=== PATIENT | female | born 1985 | race Caucasian/White ===

== ENCOUNTER 2016-05-28 10:26 | Inpatient (IN) | payer OTHER ==
[2016-05-28] MEDS ORDERED: OXYTOCIN 10 UNITS/ML VIAL ONE (10:54)
[2016-05-28] MEDS ORDERED: LIDOCAINE Viscous 2% 15 ML UDCUP ONE (10:54)
[2016-05-28] MEDS ORDERED: LIDOCAINE 1% (PRES FREE) 30 ML VIAL ONE (10:54)
[2016-05-28] MEDS ORDERED: PUMP TUBING ONE (10:54)
[2016-05-28] MEDS ORDERED: OXYTOCIN IN LR 0 ML IV ONE (10:54)
[2016-05-28] MEDS ORDERED: MINERAL OIL 25 ML BOT ONE (10:54)
[2016-05-28] MEDS ORDERED: LIDOCAINE 1% (PRES FREE) 30 ML VIAL SUB-Q ONE (11:14)
[2016-05-28] MEDS ORDERED: IBUPROFEN 800 MG TABLET ONE (11:53)
[2016-05-28] MEDS ORDERED: HYDROCODONE/ACETAMINOPHEN 5/325MG TABLET ONE (11:54)
[2016-05-28] MEDS ORDERED: IV START KIT ONE (12:12)
[2016-05-28] MEDS ORDERED: LACTATED RINGERS 1,000 ML IV SCH (12:15)
[2016-05-28] MEDS ORDERED: DOCUSATE SODIUM 100 MG CAPSULE PO PRN ×2 (12:24→15:03)
[2016-05-28] MEDS ORDERED: BENZOCAINE/MENTHOL 60 APPLIC/BOT TP PRN ×2 (12:24→15:03)
[2016-05-28] MEDS ORDERED: IBUPROFEN 800 MG TABLET PO PRN (12:24)
[2016-05-28] MEDS ORDERED: MAGNESIUM HYDROXIDE 30 ML UDCUP PO PRN (12:24)
[2016-05-28] MEDS ORDERED: HYDROCODONE/ACETAMINOPHEN 5/325MG TABLET PO ONE (12:24)
[2016-05-28] MEDS ORDERED: LANOLIN 50 APPLIC/7G TUBE TP PRN ×2 (12:24→15:03)
[2016-05-28 12:30] LABS: HEMOGLOBIN 12.3 gm/l (12.0-16.0); MEAN CELL VOLUME 93.2 fl (81.0-99.0); MEAN CORPUSCULAR HGB CONC 33.2 g/dl (33.0-37.0); RED CELL DISTRIBUTION WIDTH 13.9 % (11.5-14.5)
[2016-05-28] MEDS ORDERED: HYDROMORPHONE HCL 1 MG/ML SYRINGE IV ONE (12:32)
[2016-05-28] MEDS ORDERED: HYDROMORPHONE HCL 1 MG/ML SYRINGE ONE (12:33)
--- NOTE | 2016-05-28 12:36 | PDOC36 ---
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 Had 1st degree labial laceration on right, and then perineal 2nd degree laceration. However, subsequently 1hr after, pt was having exquisite pain and rectal pressure. Pt was noted to have right vaginal hematoma. Upon exam, pt appeared very uncomfortable. Vaginal repairs are intact, no bleeding noted. There is a 4-5cm right lateral vaginal bulge which is tender. Plan: to (main) OR for I&D of vaginal hematoma and vaginal repair. Procedure discussed, risks of bleeding, infection, injury to organs discussed possible transfusion discussed may have dilaudid
--- NOTE | 2016-05-28 12:41 | PDOC36 ---
Provider Note Subject: Vaginal hematoma Note: Called to pt's room to evaluate report of patient's pain severely increasing over the past 1/2 hour, mostly in rectal area. Has had 1 dose of ibuprofen 800 mg and NORCO 1 tab, but no effect. On evaluation, fundus is firm, lochia is moderate and external genetalia have some edema, but lacerations appear well- approximated. On vaginal exam a tender mass ~ 4-5 cm is noted in lower right vag wall, not apparently associated with the perineal laceration. Pt is writhing in pain. A: vaginal hematoma , very symptomatic P: Dr. Gama called to evaluate patient; CBC, IV ordered stat Addendum: On evaluation, Dr. Gama agrees to diagnosis of vag hematoma and will schedule the excision JOHNNY. Advises Dilaudid IV for the pain while waiting. Orders placed.
[2016-05-28] MEDS ORDERED: EPIDURAL PUMP SET ONE (12:53)
[2016-05-28] MEDS ORDERED: FENTANYL/ROPIVACAINE EPIDURAL 0 ML EP ONE (12:53)
[2016-05-28] MEDS ORDERED: SPINAL PROCEDURAL TRAY 1 EACH ONE (13:19)
[2016-05-28] MEDS ORDERED: FENTANYL 100 MCG/2 ML VIAL ONE (13:20)
[2016-05-28] MEDS ORDERED: MIDAZOLAM HCL 1 MG/ML 2ML VIAL ONE (13:20)
[2016-05-28] MEDS ORDERED: CEFAZOLIN SODIUM 2 GRAM DUPLEX 50 ML IV ONE (13:28)
[2016-05-28] MEDS ORDERED: PHENYLEPHRINE 10 MG/1 ML (1%) VIAL ONE (13:41)
[2016-05-28] MEDS ORDERED: ONDANSETRON 4 MG/2ML 2 ML VIAL ONE (14:00)
[2016-05-28] MEDS ORDERED: LIDOCAINE 2% (PRES FREE) 5 ML VIAL ONE (14:12)
[2016-05-28] MEDS ORDERED: EPHEDRINE SULFATE UD SYR 25 MG 25 MG/5 ML SYRINGE IV ONE (14:49)
[2016-05-28] MEDS ORDERED: FERROUS SULFATE (65 Fe) 325 MG TABLET PO SCH (15:00)
[2016-05-28] MEDS ORDERED: SENNOSIDES 8.6 MG TABLET PO PRN (15:03)
[2016-05-28] MEDS ORDERED: LACTATED RINGERS 1,000 ML IV PRN (15:03)
[2016-05-28] MEDS ORDERED: HYDROCODONE/ACETAMINOPHEN 5/325MG TABLET PO PRN (15:03)
--- NOTE | 2016-05-28 15:28 | PCMDEL ---
Delivery Note - Labor 1st stage (hr/min):: 4hr 57 min 2nd stage (hr/min):: 6min 3rd stage (hr/min):: 5min Total (hr/min):: 5hr 8min Pushed (hr/min):: 6 min - Delivery Delivery (Date): 05/28/16 Delivery (Time): 11:03 Infant Gender: Female Weight: 6 lb 4 oz Length: 1 ft 6.5 in Presentation: Cephalic Position: OA Umbilical Cord: 3 Vessel Delayed Cord Clamping:: 2-3 min 1 Minute Total: 9 5 Minute Total: 9 Placenta:: Torres intact EBL:: QBL 450 Perineum:: 1st degree labial/PU; 2nd degree perineal Suture:: 30 vicryl Anesthesia/Meds:: 1%lidocaine for repair Length ROM:: 2 min Comments:: Well-controlled delivery vigorous female - to maternal abdomen. Cord clamped ~3 minutes after delivery. Spont placenta, lac repaired under local. Excellent bonding - plans to breastfeed - remains [id number] in room.
--- NOTE | 2016-05-28 15:33 | PCMAN ---
OB Admission Note - History : 1 Term: 0 : 0 Abortions (S&E): 0 Livin EDC:: 06/01/16 Gestational Age (weeks): 39 Days (#/7): 3 Admit Cervical Dilation:: 9cm Admit Cervical Effacement (%):: 100 Admit Station:: -1 Admit Presentaton:: vtx Membrane Status: Intact Labor Onset (Date): 05/28/16 Labor Onset (Time): 06:00 Contractions: Yes Contraction Frequency:: q 2-3 Heart Rate:: 124 (Brief strip as patient wanting to push) Status:: Cat I Summary of Course:: Uncomplicated course x 8 visits from 25 weeks (late to care); dates by 10 week U /S Hx MJ use with UDS +, but denied use after 34 weeks Anemia of 9.8 hgb, taking Fe BID - Labs Blood Type: A (+) positive Hct/Hgb:: 9.8 Rubella Status: Immune GBS Status: Negative Other Labs:: UDS + for MJ - Review of Systems Painful with contractions, +FM, no ROM, + bloody show - Physical Exam General: Afebrile Psych/Mental Status: Mood/Affect Appropriate Neurological: Grossly Intact Lungs: Clear to Auscultation Bilaterally - Problems (1) Encounter for full-term uncomplicated delivery Status: Acute Code: O80 - Additional Comments Anticipate rapid progress to
--- NOTE | 2016-05-28 16:02 | PDOC36 ---
Provider Note Subject: note Note: Patient feeling much better, spinal is wearing off. After noting in records, patient reports she is also taking zoloft 50 mg in AM and 100 mg at night with good relief of depressive symptoms. Desires to continue - order written to start tonight as precribed prenatally.
--- NOTE | 2016-05-28 16:08 | OP ---
ANUEL ORONA [id number] DATE OF OPERATION: May 28, 2016 PREOPERATIVE DIAGNOSIS: 1. Status post vaginal delivery. 2. Vaginal hematoma. POSTOPERATIVE DIAGNOSIS: 1. Status post vaginal delivery. 2. Vaginal hematoma. OPERATION PERFORMED: INCISION AND DRAINAGE OF VAGINAL HEMATOMA AND VAGINAL REPAIR. SURGEON: Asaf Gama M.D. PROGRAM MANUFACTURING LEADER: Chiara Rodriguez C.N.M. ANESTHESIA: Spinal. ESTIMATED BLOOD LOSS: 300 mL. COMPLICATIONS: None. OPERATIVE FINDINGS: Include an 8 cm right lateral vaginal hematoma. DETAILS OF PROCEDURE: The patient was taken to the operating room and placed under spinal anesthesia. Patient was then placed in lithotomy and prepped and draped in a sterile fashion. A Melvin catheter was placed. Miranda retractors were then placed and the hematoma was examined and found to extend superiorly 8 cm involving the right lateral paravaginal space. A 6 cm incision was made over the hematoma and paravaginal space was then suctioned and evacuated of all blood clots. There was no distinct vessel that was noted. At this point the potential space was then closed with #0 Vicryl in interrupted fashion times two and then the vaginal mucosa was then closed with #0 Vicryl in interrupted fashion to close the entire space. Further areas of hemostasis were created with #0 Vicryl. The second degree laceration was also reinforced with #0 Vicryl suture. Subsequently 10 mL of 2% Lidocaine was injected locally at the vaginal incision and a large laparotomy sponge was used for packing. Estimated blood loss was 300 mL. All sponge and instrument counts were correct at this point as well as needle counts. Patient was then recovered from anesthesia and taken to the recovery room in stable condition.
[2016-05-28] MEDS: IBUPROFEN 800 MG TABLET PO PRN (18:04)
[2016-05-28] MEDS ORDERED: SERTRALINE HCL 50 MG TABLET PO ONE (20:00)
[2016-05-28] MEDS: FERROUS SULFATE (65 Fe) 325 MG TABLET PO SCH (20:42)
[2016-05-28] MEDS: SERTRALINE HCL 50 MG TABLET PO SCH (20:42)
[2016-05-28] MEDS: OXYCODONE/ACETAMINOPHEN 5/325 MG TABLET PO PRN (22:01)
[2016-05-29] MEDS: IBUPROFEN 800 MG TABLET PO PRN ×4 (01:00→21:23)
[2016-05-29] MEDS: OXYCODONE/ACETAMINOPHEN 5/325 MG TABLET PO PRN ×4 (02:49→21:22)
[2016-05-29 06:37] LABS: HEMATOCRIT 20.8 % (37.0-47.0); HEMOGLOBIN 6.8 gm/l (12.0-16.0)
--- NOTE | 2016-05-29 07:25 | PDOC44 ---
- Subjective Day: 1 Reports Pain Tolerable, Reports Lochia Light - Objective Temp Pulse Resp BP Pulse Ox 98.3 F 91 16 123/64 05/29/16 02:35 05/29/16 02:35 05/29/16 02:35 05/29/16 02:35 Lab Results 05/29/16 05/28/16 06:10 12:20 WBC 22.8 H RBC 3.97 L Hgb 6.8 L D 12.3 Hct 20.8 L 37.0 Plt Count 233 Current Medications Generic Name Dose Route Start Last Admin Trade Name Freq PRN Reason Stop Dose Admin Acetaminophen/Hydrocodone Bitart 1 - 2 tab 05/28/16 15:03 [place] 5/325 PO Q4H PRN Pain (Moderate) Benzocaine/Menthol 1 applic 05/28/16 15:03 Dermoplast TP PRN PRN Patient Comfort Docusate Sodium 100 mg 05/28/16 15:03 Colace PO DAILY PRN Comfort Emollient Ointment 1 applic 05/28/16 15:03 [id number] TP PRN PRN sore nipples Ferrous Sulfate 325 mg 05/28/16 21:00 05/28/16 20:42 Ferrous Sulfate PO 325 mg TID TOYIN Administration Lactated Ringer's 1,000 mls @ 100 mls/hr 05/28/16 15:03 Lactated Ringers IV .Q10H PRN Titrate per clinical situation Ibuprofen 800 mg 05/28/16 15:03 05/29/16 01:00 Motrin PO 800 mg Q6H PRN Administration Pain (Mild) Oxycodone/Acetaminophen 1 - 2 tab 05/28/16 16:00 05/29/16 02:49 Percocet 5/325 PO 1 tab Q6H PRN Administration Pain Senna 17.2 mg 05/28/16 15:03 Senokot PO BEDTIME PRN Comfort Sertraline HCl 100 mg 05/28/16 21:00 05/28/16 20:42 Zoloft PO 100 mg BEDTIME TOYIN Administration Sertraline HCl 50 mg 05/29/16 09:00 Zoloft PO QAM TOYIN Sodium Chloride 10 ml 05/28/16 17:00 05/29/16 07:19 Normal Saline 10ml Flush IV Not Given Q8HR TOYIN Sodium Chloride 10 ml 05/28/16 15:03 05/28/16 22:01 Normal Saline 10ml Flush IV 10 ml PRN PRN Administration IV Flush - Physical Exam Fundus: Firm, Below Umbilicus Genitourinary: Indwelling Urinary Cath, Other (vaginal packing removed) Disposition: Stable (vaginal packing removed; may remove gallardo today. Pt states her pain is much better. Lochia appears normal. Hgb=6.8 today. If asymptomatic will not need transfusion.)
[2016-05-29] MEDS: FERROUS SULFATE (65 Fe) 325 MG TABLET PO SCH ×2 (08:33→16:43)
[2016-05-29] MEDS ORDERED: SERTRALINE HCL 50 MG TABLET PO SCH ×3 (09:00→20:00)
[2016-05-29] MEDS ORDERED: IV START KIT ONE ×2 (10:01→22:09)
--- NOTE | 2016-05-29 12:10 | PDOC44 ---
- Subjective Day: 1 Gallardo and vaginal packing were removed today. She has been up to sit in the rocking chair without incident and plans to get up soon to ambulate to the bathroom with RN assistance. Reports pain is well-controlled on current meds. Mood stable on Zoloft. She denies dizziness, palpitations, fainting, weakness, shortness of breath. She is , but reports some difficulty with baby 's latch and fussiness. She's been seen by IBCLC this morning. She is hand expressing and feeding back to baby via syringe. She, Luke and baby will be moving back in with her aunt for a few weeks, and then into an apartment. She is amenable to an IV iron transfusion. Reports Flatus, Reports Pain Tolerable, Reports , Reports Lochia Moderate, Reports Tolerating Regular Diet - Objective Temp Pulse Resp BP Pulse Ox 97.3 F 93 16 120/90 05/29/16 08:16 05/29/16 08:16 05/29/16 08:16 05/29/16 08:16 Lab Results 05/29/16 05/28/16 06:10 12:20 WBC 22.8 H RBC 3.97 L Hgb 6.8 L D 12.3 Hct 20.8 L 37.0 Plt Count 233 Current Medications Generic Name Dose Route Start Last Admin Trade Name Freq PRN Reason Stop Dose Admin Acetaminophen/Hydrocodone Bitart 1 - 2 tab 05/28/16 15:03 [place] 5/325 PO Q4H PRN Pain (Moderate) Benzocaine/Menthol 1 applic 05/28/16 15:03 Dermoplast TP PRN PRN Patient Comfort Docusate Sodium 100 mg 05/28/16 15:03 05/29/16 10:03 Colace PO 100 mg DAILY PRN Administration Comfort Emollient Ointment 1 applic 05/28/16 15:03 [id number] TP PRN PRN sore nipples Ferrous Sulfate 325 mg 05/28/16 21:00 05/29/16 08:33 Ferrous Sulfate PO 325 mg TID TOYIN Administration Lactated Ringer's 1,000 mls @ 100 mls/hr 05/28/16 15:03 Lactated Ringers IV .Q10H PRN Titrate per clinical situation Ibuprofen 800 mg 05/28/16 15:03 05/29/16 08:34 Motrin PO 800 mg Q6H PRN Administration Pain (Mild) Oxycodone/Acetaminophen 1 - 2 tab 05/28/16 16:00 05/29/16 08:35 Percocet 5/325 PO 2 tab Q6H PRN Administration Pain Senna 17.2 mg 05/28/16 15:03 Senokot PO BEDTIME PRN Comfort Sertraline HCl 100 mg 05/28/16 21:00 05/28/16 20:42 Zoloft PO 100 mg BEDTIME TOYIN Administration Sertraline HCl 50 mg 05/29/16 09:00 05/29/16 08:34 Zoloft PO 50 mg QAM TOYIN Administration Sodium Chloride 10 ml 05/28/16 17:00 05/29/16 08:33 Normal Saline 10ml Flush IV 10 ml Q8HR TOYIN Administration Sodium Chloride 10 ml 05/28/16 15:03 05/28/16 22:01 Normal Saline 10ml Flush IV 10 ml PRN PRN Administration IV Flush - Physical Exam General: Afebrile Psych/Mental Status: Mood/Affect Appropriate, Judgment/Insight Intact, Bonding Well Lungs: Clear to Auscultation Bilaterally Cardiovascular: Regular Rate and Rhythm Breast: Soft, Skin intact, Erythema (Mild erythema on both nipples), Nipples Intact Fundus: Firm, Midline (1FB below), Below Umbilicus Genitourinary: Other (Deferred d/t Dr. Gama's exam this morning) Lochia: Moderate Skin: Other (Mild pallor) - Problems:Assessment/Plan (1) care following vaginal delivery Status: AcuteAssessment/Plan: A: Day 1 s/p S/p I&D for vaginal hematoma-vaginal packing and gallardo removed this morning by Dr. Gama. Lochia stable -working on latch Severe anemia P: : encourage relatching when baby is latched shallow, continue with hand expression, IBCLC & RN support with feedings, lanolin Pain: keep pain meds as ordered Severe anemia: see separate note Housing: has support and a plan in place to move within the next few weeks Depression: keep Zoloft at current dosage Anticipate d/c home tomorrow (2) Anemia due to blood loss, acute Status: AcuteAssessment/Plan: A: Severe anemia Asymptomatic, except for pallor Vital signs stable Hasn't been up to ambulate to BR yet Lochia stable P: Discussed options for treating anemia. Blood transfusion not indicated at this point because she is asymptomatic. Discussed option of one-time IV iron transfusion today and home PO TID iron. Pt agrees to IV iron transfusion. Orders placed. Pt to try ambulating with RN assistance today, alternating with rest. Encouraged pt to take extra rest going home, especially when packing and moving into new apartment. Encouraged to ask for help from family and friends. Also encouraged to stay well-hydrated. Discussed potential impact of severe anemia on . Reviewed s/s anemia and asked pt to notify RN if she develops s/s. Disposition: Anticipate DC Home Tomorrow
[2016-05-29] MEDS ORDERED: DIPHENHYDRAMINE HCL 25 MG CAPSULE PO PRN (12:19)
[2016-05-29] MEDS ORDERED: IRON SUCROSE COMPLEX 200 MG in SODIUM CHLORIDE 0.9% 100 ML IV ONE (13:00)
[2016-05-29] MEDS ORDERED: PUMP TUBING ONE (14:47)
[2016-05-29 19:25] LABS: HEMATOCRIT 18.9 % (37.0-47.0); HEMOGLOBIN 6.3 gm/l (12.0-16.0)
[2016-05-29] MEDS ORDERED: SODIUM CHLORIDE 0.9% 500 ML IV PRN (20:53)
--- NOTE | 2016-05-29 20:55 | PDOC36 ---
Provider Note Subject: CNM called by RN at 1600. RN reporting pt c/o new-onset upper abdominal and uterine pain. Reports pt was tearful when RN did abdominal and fundal exam ( prior to pt being medicated). Last pain meds given at 1500-percoset & ibuprofen. S: Pt reports that pain medications helped, but she is still mildly painful. Reports ambulating to bathroom to void x2-1 moderate sized blood clot. Reports some mild dizziness when ambulating. Denies shortness of breath, chest pain, palpitations, faintness. O: PE: mild tenderness on palpation in upper L & R quadrants; mild tenderness when gently palpating fundus-slight wincing, not tearful; lungs CTAB; heart RRR ; bruising on right inner apsect of thigh near inguinal fold and perineum (per RN exam) H/H: 6.8 & 20.8 A: Severe anemia-only symptom is mild dizziness while ambulating New-onset mild abdominal and fundal tenderness S/p 1 dose IV venofer VSS Lochia stable P: H/H ordered for 1730 tonight to rule out decreasing count/additional bleeding Colace changed to BID PRN d/t constipation from percoset and PO iron PO iron held until discharge Reviewed with pt that her pain is likely due to being sore from vigorous fundal checks, labor, and afterpains. Recommedned to observe for next 1-2hrs and if pain increases, pt is to notify RN and CNM will reevaluate pain management plan with pt. Pt agrees. Discussed that if blood count drops or if she develops additional symptoms, the recommendation will be a blood transfusion. Continue to monitor pt status closely.
[2016-05-29] MEDS ORDERED: ACETAMINOPHEN 325 MG TABLET PO ONE (21:06)
[2016-05-29] MEDS ORDERED: FUROSEMIDE 20 MG/2 ML VIAL IV ONE (21:06)
--- NOTE | 2016-05-29 21:14 | PDOC44 ---
- Subjective Day: 1 (Blood transfusion note) Reports Flatus, Reports Pain Tolerable, Reports , Reports Lochia Light, Reports Tolerating Regular Diet, Reports Other (Noting new onset dizziness.) - Objective Temp Pulse Resp BP Pulse Ox 98.1 F 84 18 103/62 05/29/16 19:39 05/29/16 19:39 05/29/16 19:39 05/29/16 19:39 Lab Results 05/29/16 05/29/16 18:30 06:10 Hgb 6.3 L* 6.8 L D Hct 18.9 L* 20.8 L Current Medications Generic Name Dose Route Start Last Admin Trade Name Freq PRN Reason Stop Dose Admin Acetaminophen/Hydrocodone Bitart 1 - 2 tab 05/28/16 15:03 [place] 5/325 PO Q4H PRN Pain (Moderate) Benzocaine/Menthol 1 applic 05/28/16 15:03 Dermoplast TP PRN PRN Patient Comfort Diphenhydramine HCl 25 mg 05/29/16 12:19 Benadryl PO X1 PRN PRN during IV iron infusion Docusate Sodium 100 mg 05/29/16 16:46 Colace PO BID PRN Comfort Emollient Ointment 1 applic 05/28/16 15:03 [id number] TP PRN PRN sore nipples Lactated Ringer's 1,000 mls @ 100 mls/hr 05/28/16 15:03 Lactated Ringers IV .Q10H PRN Titrate per clinical situation Ibuprofen 800 mg 05/28/16 15:03 05/29/16 14:54 Motrin PO 800 mg Q6H PRN Administration Pain (Mild) Oxycodone/Acetaminophen 1 - 2 tab 05/28/16 16:00 05/29/16 14:53 Percocet 5/325 PO 2 tab Q6H PRN Administration Pain Senna 17.2 mg 05/28/16 15:03 Senokot PO BEDTIME PRN Comfort Sertraline HCl 100 mg 05/28/16 21:00 05/28/16 20:42 Zoloft PO 100 mg BEDTIME TOYIN Administration Sertraline HCl 50 mg 05/29/16 09:00 05/29/16 08:34 Zoloft PO 50 mg QAM TOYIN Administration Sodium Chloride 10 ml 05/28/16 17:00 05/29/16 18:09 Normal Saline 10ml Flush IV Not Given Q8HR TOYIN Sodium Chloride 10 ml 05/28/16 15:03 05/29/16 14:54 Normal Saline 10ml Flush IV 10 ml PRN PRN Administration IV Flush - Physical Exam General: Afebrile, Other (pale, notes dizziness when up to void) Psych/Mental Status: Mood/Affect Appropriate, Judgment/Insight Intact, Bonding Well Neurological: Grossly Intact, Alert, Oriented x 4, Normal Speech Lungs: Clear to Auscultation Bilaterally Cardiovascular: Regular Rate and Rhythm Fundus: Firm, Midline Genitourinary: Normal Female Genitalia, Other (Bruise on right groing/perineum noted. Border drawn with skin marker.) Lochia: Light - Problems:Assessment/Plan (1) Anemia due to blood loss, acute Status: AcuteAssessment/Plan: A: Severe anemia symptomatic for pallor and dizziness when to up void. Vital signs stable Lochia stable P: Reviewed Karrie's status with her. New onset dizziness, concerns for prolonged fatigue, problems and milk supply noted. Otherwise currently stable vital signs and not overtly symptomatic. Reviewed options and made recommendation for blood transfusion of 2 units of PRBCs vs expectant management. Karrie agrees and voices desire for blood transfusion. Risks and benefits of blood transfusion reviewed. Reviewed importance of assistance when up to void and warning s/s. Bruise on right groin/perineum outlined with pen at 2044 on 05/29 in case of worsening condition. Encouraged continued skin to skin to help with milk supply. Reviewed s/s anemia and asked pt to notify RN if she develops s/s. Disposition: Other (Anemia with new onset symptom of dizziness. Otherwise stable.)
[2016-05-29] MEDS: SERTRALINE HCL 50 MG TABLET PO SCH (21:22)
[2016-05-29] MEDS: DOCUSATE SODIUM 100 MG CAPSULE PO PRN (21:23)
[2016-05-29] MEDS ORDERED: SODIUM CHLORIDE 0.9% FLUSH 10 ML ONE (22:10)
[2016-05-29] MEDS ORDERED: BLOOD Y PLUMSET W/CASSETTE ONE (22:57)
[2016-05-30] MEDS ORDERED: ACETAMINOPHEN 325 MG TABLET ONE (00:49)
[2016-05-30] MEDS: OXYCODONE/ACETAMINOPHEN 5/325 MG TABLET PO PRN ×3 (06:08→18:15)
[2016-05-30] MEDS: IBUPROFEN 800 MG TABLET PO PRN ×2 (06:08→12:20)
[2016-05-30 06:40] LABS: HEMOGLOBIN 8.4 gm/l (12.0-16.0)
--- NOTE | 2016-05-30 08:33 | PDOC44 ---
- Subjective Day: 2 Reports Pain Tolerable, Reports , Reports Lochia Light, Reports Other (Feels better since transfusion. No lightheaded. Lochia is mild. Had bruise on right groin but not much pain any more. Voiding well.) - Objective Temp Pulse Resp BP Pulse Ox 98.3 F 78 18 102/60 05/30/16 07:34 05/30/16 07:34 05/30/16 07:34 05/30/16 07:34 Lab Results 05/30/16 05/29/16 06:24 18:30 Hgb 8.4 L D 6.3 L* Hct 26.0 L 18.9 L* 05/28/16 12:20 Crossmatch See Detail Current Medications Generic Name Dose Route Start Last Admin Trade Name Freq PRN Reason Stop Dose Admin Acetaminophen/Hydrocodone Bitart 1 - 2 tab 05/28/16 15:03 [place] 5/325 PO Q4H PRN Pain (Moderate) Benzocaine/Menthol 1 applic 05/28/16 15:03 Dermoplast TP PRN PRN Patient Comfort Diphenhydramine HCl 25 mg 05/29/16 12:19 Benadryl PO X1 PRN PRN during IV iron infusion Docusate Sodium 100 mg 05/29/16 16:46 05/29/16 21:23 Colace PO 100 mg BID PRN Administration Comfort Emollient Ointment 1 applic 05/28/16 15:03 [id number] TP PRN PRN sore nipples Lactated Ringer's 1,000 mls @ 100 mls/hr 05/28/16 15:03 Lactated Ringers IV .Q10H PRN Titrate per clinical situation Sodium Chloride 500 mls @ 25 mls/hr 05/29/16 20:53 Sodium Chloride 0.9% IV .Q20H PRN Blood Transfusion Ibuprofen 800 mg 05/28/16 15:03 05/30/16 06:08 Motrin PO 800 mg Q6H PRN Administration Pain (Mild) Oxycodone/Acetaminophen 1 - 2 tab 05/28/16 16:00 05/30/16 06:08 Percocet 5/325 PO 2 tab Q6H PRN Administration Pain Senna 17.2 mg 05/28/16 15:03 Senokot PO BEDTIME PRN Comfort Sertraline HCl 100 mg 05/28/16 21:00 05/29/16 21:22 Zoloft PO 100 mg BEDTIME TOYIN Administration Sertraline HCl 50 mg 05/29/16 09:00 05/29/16 08:34 Zoloft PO 50 mg QAM TOYIN Administration Sodium Chloride 10 ml 05/28/16 17:00 05/29/16 18:09 Normal Saline 10ml Flush IV Not Given Q8HR TOYIN Sodium Chloride 10 ml 05/28/16 15:03 05/30/16 02:20 Normal Saline 10ml Flush IV 10 ml PRN PRN Administration IV Flush - Physical Exam Fundus: Firm, Below Umbilicus Abdomen: No Tenderness Disposition: Stable (Doing well post transfusion. Cont iron. Disposition per CNM group. f/u with Dr. Gama 2w post delivery.)
[2016-05-30] MEDS: DOCUSATE SODIUM 100 MG CAPSULE PO PRN (12:20)
[2016-05-30 15:32] VITALS: BP 107/65
--- NOTE | 2016-05-30 16:59 | PDOC39B ---
Hospital Course: ADMIT DATE: 05/28/16 DISCHARGE DATE: 05/30/16 ADMISSION DIAGNOSES: Active Labor PROCEDURES: HISTORY OF PRESENT ILLNESS: 30 year old G1 T0 L0 at 39 weeks 4 days presenting with active labor. HOSPITAL COURSE: Following precipitous labor, arriving to [facility] in active labor, the patient had a well-controlled delivery vigorous female - to maternal abdomen. Cord clamped ~3 minutes after delivery. Spont placenta, lac repaired under local. Excellent bonding - plans to breastfeed - remains [id number] in room. recovery complicated by vaginal hematoma that had I&D, vaginal packing, and severe anemia (ibrahima H/H 6.3/18.0), and difficulties related to lack of supply. Due to anemia, Karrie received two units of PRBCs with significant improvement. She then reported feeling much stronger. She received increased support on day 2 when she felt better and while she was able to get baby to latch one, concern for milk supply was voiced by . Hand pump tried and found to be ineffective. Breast pump rx for double electric pump printed and sent. She is now stable and desires to go home. She is able to get up ad fredo without issue or dizziness. She has not had a BM d/t fear of pain. Discussed. Warning s/ s reviewed. Will continue with zoloft as prescribed and will call when she needs refill. Her bleeding is minimal and her pain is well managed. She has follow up visit scheduled for later this week. By day of discharge the patient is stable, with assistance and ready to go home. - Physical Exam Vital Signs: Temp Pulse Resp BP Pulse Ox 98.3 F 78 18 102/60 05/30/16 07:34 05/30/16 07:34 05/30/16 07:34 05/30/16 07:34 General: Afebrile Psych/Mental Status: Mood/Affect Appropriate, Judgment/Insight Intact, Bonding Well Neurological: Grossly Intact, Alert, Oriented x 4, Normal Gait, Normal Speech Lungs: Clear to Auscultation Bilaterally Cardiovascular: Regular Rate and Rhythm Breast: Soft, Skin intact, Nipples Intact Fundus: Firm, Midline, Below Umbilicus Genitourinary: Normal Female Genitalia Lochia: Light Extremities: Full ROM Skin: Normal Color, Warm, Dry, Intact - Discharge Diagnosis (1) Anemia due to blood loss, acute Status: AcuteAssessment/Plan: A: recovery s/p Anemia, asymptomatic, received two units PRBCs Vital signs stable Lochia stable , donor milk supplementation, milk supply and latch problems. Appropriate for discharge P: Reviewed warning s/s and when to call CNMs. Reviewed handout. Encouraged focus on rest, hydration, x 2 weeks, especially given anemia and issues. Recommended follow up visit, lots of skin to skin time and hand expression to aid in milk supply. Breast pump order given. Reviewed plan for depression, will stay on current dose of zoloft with plan for follow up. RTC in 2wks for f/u appts given for OB care and CNM care. Discharge home with baby in stable condition. - Discharge Plan Condition: Stable Disposition: Home Instruction Forms: Vaginal Discharge Instructions Additional Instructions: Midwifery 'After the ' handout given to patient. Pain management: Ibuprofen (up to 800mg) every 6 hours. Tylenol (up to 650mg) every 6 hours. Alternate both and separate by 3 hours. If not adequate, substitute tylenol for PAIN. Contraception: Visit www.bedsider.org for more information on Paragard IUD (non- hormonal, 12yrs, periods) vs Mirena IUD (hormonal/progesterone only, 5 years, no periods) vs Kyleena (same as Mirena, but less progesterone) vs Joleen (same as Kyleena but only 3 years). Prescriptions: Docusate Sodium [Colace] 250 mg PO DAILY PRN #14 cap PRN Reason: Constipation Ibuprofen [IBUPROFEN 800 MG TABLET (SHF)] 800 mg PO Q6H PRN #30 tablet PRN Reason: Pain Hydrocodone Bit/Acetaminophen [[place] 5/325] 1 tab PO Q4-6H PRN #20 tablet PRN Reason: Pain FERROUS SULF (45 Fe) SR TABLET [SLOW FE (45 Fe) SR TABLET (SHF)] 1 each PO BID # 30 tab.sr Follow-Up: Asaf Gama MD [Staff Physician] - 06/11/16 11:00 am (Two appts made in [place], with Dr. Gama and with senior mechanical design engineer. )
== END 2016-05-30 18:55 | disposition home or self-care (01) | DRG 775 ==
LOC: FBCOUT 10:26 → FBC 10:38
PROVIDERS: ADMIT Advanced Practice Midwife; ATTEND Obstetrics & Gynecology
PROC: 10E0XZZ Delivery of Products of Conception, External Approach (ICD-10-PCS; principal; 2016-05-28)
PROC: 0KQM0ZZ Repair Perineum Muscle, Open Approach (ICD-10-PCS; 2016-05-28)
PROC: 30233N1 Transfusion of Nonautologous Red Blood Cells into Peripheral Vein, Percutaneous Approach (ICD-10-PCS; 2016-05-28)
DX: O70.1 Second degree perineal laceration during delivery (principal); Z37.0 Single live birth; O99.324 Drug use complicating childbirth; D62 Acute posthemorrhagic anemia; O71.7 Obstetric hematoma of pelvis; Z3A.39 39 weeks gestation of pregnancy; F12.90 Cannabis use, unspecified, uncomplicated; O99.344 Other mental disorders complicating childbirth; F32.9 Major depressive disorder, single episode, unspecified; O99.02 Anemia complicating childbirth; O62.3 Precipitate labor

== ENCOUNTER 2016-06-01 14:21 | Outpatient (CLI) | payer OTHER | END 2016-06-01 14:22 | disposition home or self-care (01) | LOC: BABIESSH 14:21 | PROVIDERS: ATTEND Advanced Practice Midwife | DX: Z39.1 Encounter for care and examination of lactating mother (principal) ==